=== PATIENT | female | born 1950 | race Caucasian/White ===

== ENCOUNTER 2020-12-24 13:38 | Outpatient (REF) | payer MEDICARE, BC, SELFPAY ==
[2020-12-24 14:31] LABS: Blood Urea Nitrogen 15 mg/dL (9-16); C Reactive Protein 0.19 mg/dL (< or = 0.50); Estimated Glomerular Filt Rate > 60
[2020-12-24 15:04] LABS: Erythrocyte Sedimentation Rate 29 MM/HR (0-20)
== END 2020-12-24 13:39 | disposition home or self-care (01) ==
LOC: HO.LAB 13:38
PROVIDERS: PCP Internal Medicine; Visit Provider Psychiatry & Neurology Neurology
DX: G44.039 Episodic paroxysmal hemicrania, not intractable (principal); M32.9 Systemic lupus erythematosus, unspecified
CPT/HCPCS: 36415; 82565; 84520; 85652; 86140